=== PATIENT | male | born 1985 | race Two or more races ===

== ENCOUNTER 2020-07-06 17:59 | Emergency (ER) | payer MEDICAID, OTHER ==
[~2020-07-06] VITALS: Ht 177.8 cm; Wt 72.6 kg
[2020-07-06 18:06] VITALS: BP 140/90
== END 2020-07-06 21:07 | disposition left against medical advice (07) ==
LOC: EDBD 17:59 → ER 17:59
DX: S61.411A Laceration without foreign body of right hand, initial encounter (principal); Z53.21 Procedure and treatment not carried out due to patient leaving prior to being seen by health care provider; X58.XXXA Exposure to other specified factors, initial encounter; Y93.89 Activity, other specified; Y92.89 Other specified places as the place of occurrence of the external cause; Y99.8 Other external cause status